=== PATIENT | female | born 1985 | race Caucasian/White ===

== ENCOUNTER 2023-01-11 20:07 | Observation (INO) | payer MEDICAID, SELFPAY ==
[2023-01-11] VITALS (8 sets, daily range): BP systolic 110–131; BP diastolic 65–105; PULSE 60–100; RESP 16; TEMP 36.1–36.9; O2SAT 92–100; BMI 28.5
[2023-01-11 11:40] LABS: Hematocrit 43.3 % (37-47); Hemoglobin 13.9 g/dL (12.0-15.0); Mean Corp Hgb Conc 32.1 g/dL (32-36); Mean Corpuscular Hgb 28.1 pg (27.0-32.0); Mean Corpuscular Volume 87.5 fL (81-99); Mean Platelet Vol. 9.8 fl (6.2-12.0); Platelet Count 348 K/mm3 (150-450); RBC Distribution Width CV 13.3 % (11.6-14.6); RBC Distribution Width SD 42.5 fl (35.1-43.9); Red Blood Count 4.95 M/mm3 (4.2-5.4); White Blood Count 7.1 K/mm3 (4.4-11.0)
[2023-01-11 11:54] LABS: Prothrombin Time (Protime)PT. 12.9 SECONDS (11.7-14.9)
[2023-01-11 11:55] LABS: Partial Thromboplast Time 26.2 Seconds (24.1-36.2)
[2023-01-11 12:03] LABS: AST(SGOT) 30 U/L (15-37); Alanine Aminotransfer ALT/SGPT 37 U/L (13-56); Albumin, Serum 4.2 g/dL (3.2-5.0); Alkaline Phosphatase 87 U/L (45-117); Anion Gap 4 (5-15); BUN 11 mg/dL (7-18); BUN/Creat Ratio 15.9 RATIO (10-20); Calcium,Total 9.3 mg/dL (8.5-10.1); Chloride 107 mmol/L (98-107); Creatinine, Serum 0.69 mg/dL (0.55-1.02); EST Glomerular Filtration Rate 100 mL/min (>60); Est Glom Filt Rate - Afr Amer 121 mL/min (>60); Globulin 4.1 g/dL (2.2-4.2); Glucose 101 mg/dL (74-106); Potassium 3.2 mmol/L (3.5-5.1); Protein, Total 8.3 g/dL (6.4-8.2); Sodium Level 138 mmol/L (136-145); hCG Titer Quant., Serum 387 mIU/mL (1-3)
[2023-01-11] MEDS: Lactated Ringers 1,000 ML 15 ML IV (15:56)
--- NOTE | 2023-01-11 17:00 | HYST_PTH ---
PATIENT: DILIP WILLAMS LOC: MS3 U#:[id number] AGE/SX: 37/F ROOM: [facility] [place] RE01/11/[address]: Dr. Eric Steiner MD : [id number] BED: 1 DIS: 01/12/2023 SPEC #: [id number] RECD: 01/12/23 10:14 STATUS: VELASQUEZ RERadha #: [id number] TEN: 01/11/23 17:[address]: Eric Steiner DEPT: SURGICAL PATHOLOGY RECD BY: Maegan Ortiz Tissues: Uterus, NOS Procedures: Surgery Specimen Level V HEADER OPERATION: Laparoscopic removal ectopic PRE-OP DIAGNOSIS: Vaginal bleeding and positive test TISSUE SUBMITTED: Cervix, uterus and bilateral fallopian tubes MICROSCOPIC DIAGNOSIS Cervix, uterus, bilateral fallopian tubes, hysterectomy and bilateral salpingectomy: Cervix ? chronic cystic cervicitis. Endometrium ? proliferative endometrium. Myometrium ? hemorrhagic mass at the left cornu with chorionic villi, consistent with ectopic Bilateral fallopian tubes - no pathologic diagnosis. SJ:kenan 01/13/2023 MICROSCOPIC DESCRIPTION Slides are reviewed. GROSS DESCRIPTION Received in fixative is one container labeled with the patient's name and designated uterus. The specimen consists of a previously opened uterus measuring 11.0 x 16.0 x 3.0 cm and weighing 128 gm. The ectocervix and endocervix is unremarkable. The endocervical canal measures 3.5 cm in length. The elongated endometrial cavity measures 4.0 x 2.5 cm. The velvety, light garcia endometrium measures up to 0.2 cm in thickness. The myometrium measures 2.5 cm in average thickness and is distorted by a single hemorrhagic mass at the left cornu that has previously been opened. The mass measures 4.5 x 4.0 x 3.5 cm. Also present free in the container are two fallopian tubes with average lengths of 5.0 cm and average diameters of 0.8 cm. Conservation Technician sections are submitted as follows: 1 - anterior cervix, 2??posterior cervix, 3 & 4 - anterior myometrial wall, 5 & 6 - posterior myometrial wall, 7-10 - hemorrhagic myometrial mass, 11 - one fallopian tube, 12 - the other fallopian tube. / AM:kenan 01/12/2023 TC: CPT: 04122
--- NOTE | 2023-01-11 17:19 | HP.PCM.OB_ITS ---
History and Physical Date of Admission: 01/11/23 Chief complaint: Vaginal bleeding History present illness: 37-year-old G4, P2 arrives with vaginal bleeding and positive test of unknown location suspected ectopic , scheduled for diagnostic laparoscopy removal of ectopic, possible hysteroscopy suction dilatio n curettage. No medical changes since last seen. All questions answered and consent signed. Obstetrical history: with a history of 2 vaginal deliveries Past medical history: None Medications: None Allergies: No known drug allergies Past surgical history: None Social history: Denies smoking, alcohol use, drug use Family history: Denies history DVT or PE Review of systems: Besides above pertinent positives a full review of systems was performed and found to be negative Physical exam: Vitals: Blood pressure 123/87 pulse 81 respiratory rate 16 temperature 98.1 ?F SPO2 100% on room air General: Normal-appearing no acute distress HEENT: Normocephalic/atraumatic no cervical lymphadenopathy Cardiac/respiratory: No successor muscles, nonlabored breathing Abdomen: Soft, slightly tender to deep palpation of left lower quadrant, nondistended Extremities: No peripheral edema normal peripheral pulses Psych: Normal affect normal demeanor nonpressured speech Labs: White blood cell count 7.0 hemoglobin 13.9 hematocrit 43.3% platelets 348 PT 12.9 INR 1.0 PTT to 26.2 sodium 138 potassium 3.2 creatinine 0.69 AST 30 ALT 37. hCG 387. Blood type a positive antibody negative. Assessment and plan: 37-year-old G4, P2 with vaginal bleeding positive test and plateauing hCG levels with left-sided pain with ultrasound findings of complex left-sided mass. Educated patient on procedure and need for diagnostic laparoscopy, discussed removal of ectopic and risk for removal of fallopian tubes and/or ovary. Patient state understanding wish to proceed. Discussed risk for suction dilation curettage including risk for cornual ectopic which may require cornual resection and its risks along with possible hysterectomy. Patient state understanding and is okay with hysterectomy with no future desire for childbearing. Educated patient on risk benefits alternatives of all portion of the procedure, these include but are not limited to visceral or vascular injury, prolonged hospitalization, blood loss need for transfusion, reoperation. Patient state understanding wish to proceed. All questions were answered and consent was signed.
--- NOTE | 2023-01-11 20:10 | OP.PCM_ITS ---
Report of Operation Date of Procedure: 01/11/23 Pre-Operative Diagnosis: Suspected ectopic Post-Operative Diagnosis: Corneal ectopic Surgery/Procedure Performed:: Diagnostic laparoscopy, total laparoscopic hysterectomy, bilateral salpingectomy, cystoscopy Description of Surgical Findings:: Surgeon: Eric Steiner MD Anesthesia: General EBL: 50 cc Urine output: 300 cc IV fluids: 1700 cc Complications: None Specimen: Cervix, uterus, bilateral fallopian tubes Findings: Left cornu of uterus with 6 cm bulge both soft and firm portions, bilateral fallopian tubes and ovaries within normal limits. Confirms suspicion for cornual ectopic . Cornual consumes majority of the uterus could not salvage uterus in need of hysterectomy because of this. Called patient support person to discuss situation and patient support person state understanding and confirmed/reported hysterectomy. Post procedure cystoscopy with bilateral ureteral jets noted and no pathology noted. Cervix uterus and cornual ectopic evaluated post procedure, uterus open and cornua open to evaluate findings appearance of products of conception noted. Consent: Patient with plateauing hCG vaginal bleeding and abdominal pain with imaging suspicious for ectopic , patient elects for diagnostic laparoscopy, removal of ectopic , possible hysteroscopy suction dilation curettage. Also confirm before surgery if patient with cornual discussed coronary resection versus hysterectomy. Risk benefits alternatives of all procedures discussed include but are not limited to visceral or vascular injury, prolonged hospitalization, blood loss need for transfusion, reoperation. Patient state understanding wish to proceed. All questions were answered and consent was signed. Procedure: Patient was brought back to the OR where general anesthesia was found to be adequate. 2 g of Ancef were given for infection prophylaxis at the time of transitioning to hysterectomy. Patient was prepared and draped in a dors olithotomy position with yellowfin stirrups. A weighted speculum placed in the posterior aspect of the vagina. Cervical dilators were used to dilate the cervix. Uterine manipulator was placed. Varies needle was inserted at the umbilicus and water safety test was passed abdomen was insufflated. 5 mm midline supraumbilical trocar was inserted via Optiview. Laparoscope was inserted and above findings were noted. Left lower quadrant 5 mm trocar was inserted under direct visualization. Atraumatic grasper was used to make the above observations. At this time it was discussed with patient's support person about findings and recommendation for hysterectomy, support person confirmed. Transition to hysterectomy. At which time Advincula uterine manipulator was placed, Perez catheter already present. Umbilical trocar 5 mm was switched for 11 mm trocar which was inserted under direct visualization. 8 mm right lower quadrant air seal trocar was inserted under direct visualization. Bilateral ureters were identified and noted to be out of the operative field. Using a LigaSure and and L-hook the left round ligament was identified cut and cauterized, anterior and posterior portions of broad ligament were dissected. Bladder flap was developed. Left utero-ovarian ligament was identified cut and cauterized. Left fallopian tube was identified to the fimbria and the mesosalpinx was cut and cauterized, fallopian tube was transected at the isthmus, removed from the abdominal cavity, and sent to pathology. Left uterine vessels were skeletonized. Left uterine vessels were cut and cauterized, lateralized beyond the level of colpotomy cup. Right round ligament was identified cut and cauterized, anterior and posterior portions of broad ligament were dissected. Bladder flap was fully developed beyond the level of colpotomy cup. Right utero-ovarian ligament was identified cut and cauterized. Right fallopian tube was identified out to the fimbria and the mesosalpinx was cut and cauterized, the isthmus was transected, right fallopian tube was removed from the abdominal cavity, and sent to pathology. Right uterine vessels were skeletonized. Right uterine vessels were cut and cauterized, lateralized beyond the level of colpotomy cup. Using L-hook the circumferential colpotomy was made. Uterus and cervix were removed from the abdominal cavity. Good hemostasis was noted. Colpotomy was closed vaginally with Vicryl suture x2. [id number]'s were used for further reapproximation and hemostasis. Good hemostasis was noted, irrigation was performed, good hemostasis was noted. Laparoscopically cuff incision was inspected and good hemostasis was noted. Collette placed over the operative site laparoscopically. Insufflation pressure was dropped and good hemostasis was noted, trocars were removed under direct visualization, good hemostasis was noted. Abdomen was desufflated. Cystoscopy was performed and above findings were noted. 11 mm supraumbilical trocar site fascia closed with 0 Vicryl suture. All trocar sites were closed in a subcuticular fashion. Good hemostasis was noted. All counts were correct x2. Patient tolerated procedure well and was brought to recovery in stable condition. hydrogen power plant manager: Mundo Bell
[2023-01-11] MEDS: oxyCODONE 5 MG Tablet PO (22:18)
[2023-01-11] MEDS: Docusate Sodium 100 MG Capsule PO (22:18)
[2023-01-11] MEDS: Ondansetron ODT 4 MG Tablet PO (22:18)
[2023-01-12] MEDS: Ketorolac 30 MG/ML Syringe IV ×3 (00:03→11:45)
[2023-01-12] MEDS: Acetaminophen 500 MG Tablet 1000 MG PO ×3 (00:03→11:45)
[2023-01-12 00:24] VITALS: BMI 29.4
[2023-01-12 01:57] VITALS: BP 109/60; PULSE 84; RESP 14; TEMP 36.9; O2SAT 95
[2023-01-12 06:15] LABS: Hematocrit 39.5 % (37-47); Hemoglobin 12.5 g/dL (12.0-15.0); Mean Corp Hgb Conc 31.6 g/dL (32-36); Mean Corpuscular Hgb 27.8 pg (27.0-32.0); Mean Corpuscular Volume 87.8 fL (81-99); Mean Platelet Vol. 9.7 fl (6.2-12.0); Platelet Count 306 K/mm3 (150-450); RBC Distribution Width CV 13.2 % (11.6-14.6); RBC Distribution Width SD 42.7 fl (35.1-43.9); White Blood Count 9.7 K/mm3 (4.4-11.0)
[2023-01-12 07:35] VITALS: O2SAT 100
[2023-01-12 07:53] VITALS: BP 109/61; PULSE 86; RESP 16; TEMP 36.8; O2SAT 98
[2023-01-12] MEDS: oxyCODONE 5 MG Tablet PO ×2 (07:55→10:07)
[2023-01-12] MEDS: Ensure Plus High Protein 120 ML LIQUID PO ×2 (07:55→11:50)
[2023-01-12] MEDS: Docusate Sodium 100 MG Capsule PO (07:55)
--- NOTE | 2023-01-12 08:28 | DCINST_ITS ---
Discharge Instructions Diet Discharge Diet: No restrictions Activity Discharge Activity: Return to Normal Activity, May Drive, May Shower and - (No tub baths for 2 weeks) May resume sexual activity in: 6-8 weeks Lifting Restrictions: No lifting over 25 pounds for 2-3 weeks Dressing / Incision Call your doctor if your incision/area has: Continuous Slow Oozing and Foul Smelling Discharge Call your doctor if you observe: Fever of 101 or Higher, Shortness of breath and Chest pain Follow Up Care Please Follow Up With: Eric Steiner MD When: 2 weeks postoperatively Test Results: Test results from this visit will be discussed in further detail at your follow- up appointment, if applicable. Discharge Plan Admission Admit Date/Time: 01/11/23 20:07 Primary Reason for Your Visit: Vaginal bleeding Attending Provider: Eric Steiner Instructions Additional Instructions / Restrictions: Regular diet. Okay to shower. No tub baths for 2 weeks. No intercourse for 6 to 8 weeks. No lifting over 25 pounds for 2 to 3 weeks. Call if fevers, chills, chest pain, shortness of breath. Follow-up 2 weeks postoperatively Discharge Orders/Prescriptions Prescriptions: New oxycodone 5 mg Tablet 5 mg PO Q6H PRN PRN (Reason: Pain Score 4-10/10) 5 Days Qty: 20 0RF Continued multivitamin Tablet 1 tab PO DAILY Disposition Discharge Orders: Discharge Patient (Routine); Ordered 01/12/23 Ordered By: Dr. Eric Steiner
--- NOTE | 2023-01-12 08:29 | PCM.PN.OB ---
Subjective Subjective No overnight complaints. Regular diet. Ambulating. Voiding spontaneously Objective Data Objective Data Vital Signs: Vital Signs Temp Pulse Resp BP Pulse Ox O2 Del Method O2 Flow Rate 98.2 F 86 16 109/61 98 Room Air 2 01/12/23 07:53 01/12/23 07:53 01/12/23 07:53 01/12/23 07:53 01/12/23 07:53 01/12/23 07:53 01/11/23 21:00 Oxygen Flow Rate (L/min) 2 Oxygen Delivery Method Room Air Weight: 166 lb 3.657 oz Body Mass Index (BMI) 29.4 Intake & Output: Intake and Output for Last 24 Hours 01/10/23 01/11/23 01/12/23 23:59 23:59 23:59 Intake Total 1108.75 / 1108.75 Output Total 300 / 300 1350 / 1350 Balance -300 / 0 -241.25 / -241.25 Lab / Micro Data Result Diagrams: 01/12/23 05:40 01/11/23 11:07 Labs: Laboratory Results - last 24 hr 01/11/23 11:07: WBC 7.1, RBC 4.95, Hgb 13.9, Hct 43.3, MCV 87.5, MCH 28.1, MCHC 32.1, RDW Std Deviation 42.5, RDW Coeff of Albert 13.3, Plt Count 348, MPV 9.8 01/11/23 11:07: Sodium 138, Potassium 3.2 L, Chloride 107, Carbon Dioxide 27.0, Anion Gap 4 L, BUN 11, Creatinine 0.69, Est GFR (MDRD) Af Amer 121, Est GFR (MDRD) Non-Af 100, BUN/Creatinine Ratio 15.9, Glucose 101, Calcium 9.3, Total Bilirubin 0.40, AST 30, ALT 37, Alkaline Phosphatase 87, Total Protein 8.3 H, Albumin 4.2, Globulin 4.1, Albumin/Globulin Ratio 1.0 01/11/23 11:07: PT 12.9, INR 1.0, APTT 26.2 01/11/23 11:07: HCG, Quant 387 H 01/11/23 11:07: Blood Type A POSITIVE, Antibody Screen NEGATIVE 01/12/23 05:40: WBC 9.7, RBC 4.50, Hgb 12.5, Hct 39.5, MCV 87.8, MCH 27.8, MCHC 31.6 L, RDW Std Deviation 42.7, RDW Coeff of Albert 13.2, Plt Count 306, MPV 9.7 Physical Exam Const alert, oriented x3, no apparent distress, average body habitus, healthy appearing and well nourished HEENT normocephalic and moist oral mucous membranes Eyes PERRL Neck full ROM Resp normal respiratory effort, no retractions and no use of accessory muscles GI GI Narrative: Soft, nontender, laparoscopic incisions clean dry and intact Extremity normal to inspection and full ROM Neuro moves all extremities and no focal motor deficits Psych mental status grossly normal, affect normal, speech normal and activity/motor behavior normal Assessment & Plan (1) Acute postoperative pain: PLAN: Postop day 1 status post diagnostic laparoscopy, total laparoscopic hysterectomy, bilateral salpingectomy, cystoscopy for cornual ectopic . Patient tolerating regular diet. Ambulating. Voiding spontaneously. Pain well controlled. Educated patient on operative findings and thought process of surgery including need for hysterectomy. Discussed intraoperative and postoperative findings. Educated patient on postoperative care. Patient states understanding all questions answered. Patient okay to discharge home today
[2023-01-12] MEDS: 0.9% Saline Lock 10 ML Syringe IV (11:45)
--- NOTE | 2023-01-12 11:45 | PHA.DC.MC ---
Pharmacy Service has performed discharge medication reconciliation and counseling for this patient. The patient was counseled on the following discharge medications and changes in medications for homegoing were reviewed. 1. OXYCODONE The Reason for Use, instructions for use, and potential side effects were reviewed for all new medications. The patient's questions regarding all of their medications were answered. The patient was able to verbally demonstrate an understanding of their discharge medications. NOTE: Also answered questions regarding tylenol and ibuprofen use (how to take to optimize pain control) Home Medications multivitamin 1 tab PO DAILY 01/11/23 oxycodone 5 mg tablet 5 mg PO Q6H PRN PRN Pain Score 4-10/10 5 days #20 tabs 01/11/23
[2023-01-12 11:54] VITALS: BP 109/71; PULSE 88; RESP 18; TEMP 36.7; O2SAT 98
== END 2023-01-12 13:22 | disposition home or self-care (01) ==
LOC: SDC 20:16 → MS3 20:16
PROVIDERS: Admitting Provider Obstetrics & Gynecology; Referring Provider Obstetrics & Gynecology; Visit Provider Obstetrics & Gynecology
PROC: 10T24ZZ Resection of Products of Conception, Ectopic, Percutaneous Endoscopic Approach (ICD-10-PCS; CPT 59150; principal; 2023-01-11 16:45)
DX: O00.80 Other ectopic pregnancy without intrauterine pregnancy (principal)
CPT/HCPCS: 58571; 00840; 36415; 80053; 84702; 85027; 85610; 85730; 86850; 86900; 86901; 88307; 94668; 96374; 96376; 99221; J7120; A4216; G0378; J2405